=== PATIENT | male | born 1960 | race Caucasian/White ===

== ENCOUNTER → 2016-06-05 | Outpatient (CLI) | payer OTHER, MEDICAID ==
--- NOTE | 2016-06-05 12:46 | MRI ---
HISTORY: Spondylosis, thoracic region, chronic thoracic pain Study: MRI lumbar spine without contrast Comparison: None Technique: Multiplanar multi-sequence MRI of the thoracic spine was obtained with standard [facility] protocol. Findings: The thoracic spine demonstrates normal alignment. No abnormal cord or marrow signal identified. The surrounding soft tissues are within normal limits. Vertebral body heights are preserved. Mild disc bulge with ligamentous calcification at T8-T9 does not appear to cause any significant mass effect. No significant spinal canal or foraminal stenosis identified. IMPRESSION: 1. Unremarkable MRI of the thoracic spine. Reported By:
== END ==
LOC: RAD 09:48
PROVIDERS: ATTEND Internal Medicine
DX: M47.894 Other spondylosis, thoracic region (principal)
CPT/HCPCS: 72146

== ENCOUNTER 2016-08-17 04:53 | Observation (INO) | payer OTHER, MEDICAID ==
[2016-08-17] MEDS ORDERED: ADACEL TDaP IM ONE (05:22)
--- NOTE | 2016-08-17 05:30 | DR.GENAD ---
HPI - PCP Primary Care Physician: YOUNG - Complaint/Symptoms Chief Complaint Doctors Comments: Patient states he has fallen twice today once on his left side and the other time backwards when he was in the bathroom. Patient states he has been having problems walking with problems with his balance wobbling for the past three weeks getting worst tonight. Patient states he has been having weakness and decrease senstion in his left leg for a while. He saw Dr. Weinberg five days ago for tests. States he was recently in the hospital at [place] for the same problems he is having tonight according to his father. Patient denies tobacco or drugh use. States he has been having leg pain with swelling. States he is a bad diabetic and has heart problems and sees a vending manager in [place], Dr. Norman. States he has had two stents in his heart and one in his leg about two years ago. states he has a cut on his left leg for a while and he is unsure of his last tetanus. He denies chest pain or SOB. Chief Complaint:: LEG PAIN/WEAKNESS/FALLEN - Nurses notes reviewed Nurses Notes Review: Yes - Source History Provided: Patient - Mode of Arrival Mode of Arrival: Ambulatory - Timing Onset of Chief Complaint: 07/31/16 Came on: Gradually - Duration Duration: Intermittent How lon Duration: Weeks - Severity Severity: Moderate - Modifying Factors Worsens:: walking Improves:: nothing PMH - PMH Past Medical History: Yes Past Medical History: Coronary Artery Disease, Diabetes, Dyslipidemia, Hypertension Past Surgical History: Yes Surgical History: Angioplasty/Stents, Tonsillectomy Past Surgical History Comment: STENTS IN BOTH LEGS, CATARACTS BILAT - Family History History of Family Medical Conditions: Yes Family Medical History: Diabetes Mellitus, Cancer, [place], Coronary Artery Disease, Heart Failure, Sudden Cardiac , Hypertension - Social History Does patient currently use any type of tobacco product: No Have you used tobacco products in the last 12 months: No Type of Tobacco Use: None Does any household member use tobacco: No Alcohol Use: None Do you use any recreational Drugs:: No Lives With: Family Lives Where: Home - infectious screening In the last 2 months have you had wt loss of >10#?: NO Have you had fever, night sweats or hemotysis?: No Have you traveled outside the country in the last 6 months?: No Isolation: Standard ROS - Review of Systems Constitutional: No Symptoms Reported, Weakness. negative: See HPI, Chills, Diaphoresis, Fever, Malaise, Irritable, Fatigue, Loss of Appetite, Other Eyes: No Symptoms Reported ENTM: No Symptoms Reported Respiratoy: No Symptoms Reported Cardiovascular: No Symptoms Reported, Edema. negative: See HPI, Chest Pain, Palpitations, Syncope, Cyanosis, Skin Mottling, Other Gastrointestinal/Abdominal: No Symptoms Reported Genitourinary: No Symptoms Reported Neurological: No Symptoms Reported, Numbness (left leg and foot), Paresthesia, Pre-existing Deficit (left leg numbness), Weakness, Problems Walking Musculoskeletal: No Symptoms Reported, Left, Arm, Leg Integumentary: No Symptoms Reported, Lesions (left leg with 4 cm abrasion) Hematologic/Lymphatic: No Symptoms Reported Endocrine: No Symptoms Reported Psychiatric: No Symptoms Reported PE - General Limitations: No Limitations General Appearance: Alert, In Distress (moderate), Obese - Head Head Exam: Normal Inspection, Atraumatic, Normocephalic - Eyes Eye exam: Normal Appearance, PERRL, EOMI. negative: Scleral Icterus, Conjunctival Injection, Nystagmus, Miosis, Mydrasis, Periorbital Swelling, Periorbital Tenderness, Other - ENT ENT Exam: Normal Exam, Normal Oropharynx, Normal External Ear Exam, Mucous Membranes Moist, TM's Normal Bilaterally External Ear Exam: Normal External Inspection TM/Canal Exam: Bilateral Normal Nose Exam: Normal Nose Exam Mouth Exam: Normal Inspection Throat Exam: Normal Inspection - Neck Neck Exam: Normal Inspection, Full ROM, Trachea Midline, Tenderness (posterior neck tender on palpation). negative: Meningismus, Lymphadenopathy, Thyromegaly , Other - Chest Chest Inspection: Normal Inspection, Symmetric Chest Wall Rise - Respiratory Respiratory Exam: Normal Lung Sounds Bilat Respiratory Exam: Bilateral Clear to Auscultation - Cardiovascular Cardiovascular Exam: Regular Rate, Normal Rhythm, Normal Heart Sounds - Abdominal Exam Abdominal Exam: Normal Inspection, Normal Bowel Sounds, Soft, Distention, Dimnished Bowel Sounds Abdominal Tenderness: negative: RUQ, RLQ, LUQ, LLQ, Epigastrium, Suprapubic, Diffuse, Mild, Moderate, Severe, Other - Extremities Extremities Exam: Normal Inspection, Full ROM, Tenderness (left lower leg with linear abrasion 4 cm; edema 2+), Normal Capillary Refill, Edema. negative: Joint Swelling, Calf Tenderness, Other - Back Back Exam: Normal Inspection, Full ROM. negative: Tenderness, (R) CVA Tenderness, (L) CVA Tenderness, Muscle Spasm, Paraspinal Tenderness, Vertebral Tenderness, Rashes, (R) Sciatic Notch Tenderness, (L) Sciatic Notch Tendern, (R ) Straight Leg Raise, (L) Straight Leg Raise, Other - Neurologic Neurological Exam: Alert, Oriented X3, CN II-XII Intact, Reflexes Normal. negative: Normal Gait, Motor Sensory Deficit - Psychiatric Psychiatric Exam: Normal Affect, Normal Mood. negative: Depressed, Agitated, Anxious, Flat Affect, Manic, Homicidal Ideation, Suicidal Ideation, Other - Skin Skin Exam: Warm, Dry, Intact, Normal Color. negative: Rash, Cyanosis, Diaphoresis, Erythema, Pallor, Mottled, Other Course - Reevaluation 1st: Improved - Consultation Called: 08:13 Call Returned: 08:13 (Dr. Snow to admit) - Education/Counseling Education/Counseling: Patient, Family Educated On: Treatment, Diagnosis, Prognosis, Needs for Follow Up ROR - Labs Reviewed Laboratory Results Reviewed?: Yes (all labs and x-ray results reviewed and discussed with patient) Result Diagrams: 08/17/16 05:36 08/17/16 05:36 Laboratory: WBC 14.8 X10^3/uL (3.6-10.0) H 08/17/16 05:36 RBC 4.15 X10^6/uL (4.7-6.0) L 08/17/16 05:36 Hgb 12.9 g/dL (13.5-18.0) L 08/17/16 05:36 Hct 39.5 % (42.0-54.0) L 08/17/16 05:36 MCV 95.2 fL (80.0-100.0) 08/17/16 05:36 MCH 31.2 pg (27.0-34.0) 08/17/16 05:36 MCHC 32.7 g/dL (33.0-35.0) L 08/17/16 05:36 RDW 13.6 % (11.6-16.5) 08/17/16 05:36 Plt Count 233 X10^3/uL (150.0-450.0) 08/17/16 05:36 MPV 10.1 fL (7.4-11.0) 08/17/16 05:36 Neut % 87.7 % (42.0-75.0) H 08/17/16 05:36 Lymph % 3.7 % (21.0-51.0) L 08/17/16 05:36 [place] % 7.0 % (0.0-13.0) 08/17/16 05:36 Eos % 0.8 % (0.9-2.9) L 08/17/16 05:36 Baso % 0.8 % (0.2-1.0) 08/17/16 05:36 Neut # 13.0 x10^3/uL (2.2-4.8) H 08/17/16 05:36 Lymph # 0.5 X10^3/uL (1.3-2.9) L 08/17/16 05:36 [place] # 1.0 x10^3/uL (0.3-0.8) H 08/17/16 05:36 Eos # 0.1 x10^3/uL (0.0-0.2) 08/17/16 05:36 Baso # 0.1 X10^3/uL (0.0-0.1) 08/17/16 05:36 Absolute Nucleated RBC 0.0 /100WBC 08/17/16 05:36 INR Target Range - 08/17/16 05:36 INR 1.68 (0.8-1.3) H 08/17/16 05:36 PTT 42.4 SECONDS (22.9-36.5) H 08/17/16 05:36 PTT Comment - 08/17/16 05:36 D-Dimer 165 ng/mL (0-400) 08/17/16 05:36 Sodium 137 mmol/L (136-145) 08/17/16 05:36 Corrected Sodium 139 mmol/L (136-145) 08/17/16 05:36 Potassium 3.8 mmol/L (3.5-5.1) 08/17/16 05:36 Chloride 97 mmol/L (98-107) L 08/17/16 05:36 Carbon Dioxide 28.0 mmol/L (21-32) 08/17/16 05:36 BUN 31 mg/dL (7-18) H 08/17/16 05:36 Creatinine 1.96 mg/dL (0.70-1.30) H 08/17/16 05:36 Est GFR (MDRD) Af Amer 46 (>60) L 08/17/16 05:36 Est GFR (MDRD) Non-Af 38 (>60) L 08/17/16 05:36 Glucose 178 mg/dL (65-99) H 08/17/16 05:36 Calcium 8.5 mg/dL (8.5-10.1) 08/17/16 05:36 Corrected Calcium TNP 08/17/16 05:36 Magnesium 1.2 mg/dL (1.7-2.9) L 08/17/16 05:36 Total Bilirubin 0.50 mg/dL (0.2-1.0) 08/17/16 05:36 AST 18 Units/L (15-37) 08/17/16 05:36 ALT 19 Units/L (12-78) 08/17/16 05:36 Alkaline Phosphatase 55 Units/L (46-116) 08/17/16 05:36 Creatine Kinase 400 Units/L (39-308) H 08/17/16 05:36 CK-MB (CK-2) 2.9 ng/mL (0-4.0) 08/17/16 05:36 CK/CKMB % Calc 0.7 % (<4) 08/17/16 05:36 Troponin I < 0.02 ng/mL (0-1.5) 08/17/16 05:36 Total Protein 7.2 g/dL (6.4-8.2) 08/17/16 05:36 Albumin 3.4 g/dL (3.4-5.0) 08/17/16 05:36 Globulin 3.8 g/dL (2.5-4.5) 08/17/16 05:36 Albumin/Globulin Ratio 0.9 Ratio (1.1-2.1) L 08/17/16 05:36 - XRAY XRAY Interpreted by: Radiologist (CXR: No acute cardiopulmonary abnormality. Cardiomegaly) - EKG Rate: 109 [place]: Normal Rhythm: NSR ST: Old, Ant, Infarct - Diagnosis Discharge Problem: Chest pain, rule out acute myocardial infarction, altered mental status with fall, Left hemiparesis, Morbid obesity, Chronic pain syndrome Diabetes mellitus Qualifiers: Diabetes mellitus type: type 2 Diabetes mellitus complication status: with hyperglycemia Abrasion of left leg Qualifiers: Encounter type: initial encounter Qualified Code(s): S80.812A - Abrasion, left lower leg, initial encounter - Discharge Plan Disposition: ADMITTED INPATIENT Condition: Stable - Follow ups/Referrals Follow ups/Referrals: Luis Weinberg [Primary Care Provider] - 3 days - Instructions
[2016-08-17 05:44] LABS: BASOPHILS # (AUTO) 0.1 X10^3/uL (0.0-0.1); BASOPHILS % (AUTO) 0.8 % (0.2-1.0); EOSINOPHILS # (AUTO) 0.1 x10^3/uL (0.0-0.2); EOSINOPHILS % (AUTO) 0.8 % (0.9-2.9); HEMATOCRIT 39.5 % (42.0-54.0); HEMOGLOBIN 12.9 g/dL (13.5-18.0); LYMPHOCYTES # (AUTO) 0.5 X10^3/uL (1.3-2.9); LYMPHOCYTES % (AUTO) 3.7 % (21.0-51.0); MEAN CORPUSCULAR HEMOGLOBIN 31.2 pg (27.0-34.0); MEAN CORPUSCULAR HGB CONC 32.7 g/dL (33.0-35.0); MEAN CORPUSCULAR VOLUME 95.2 fL (80.0-100.0); MEAN PLATELET VOLUME 10.1 fL (7.4-11.0); NEUTROPHILS % (AUTO) 87.7 % (42.0-75.0); PLATELET COUNT 233 X10^3/uL (150.0-450.0); RED BLOOD COUNT 4.15 X10^6/uL (4.7-6.0); RED CELL DISTRIBUTION WIDTH 13.6 % (11.6-16.5); WHITE BLOOD COUNT 14.8 X10^3/uL (3.6-10.0)
[2016-08-17 05:59] LABS: BLOOD UREA NITROGEN 31 mg/dL (7-18); CALCIUM 8.5 mg/dL (8.5-10.1); CHLORIDE 97 mmol/L (98-107); COR NA(FOR HYPERGLY) 139 mmol/L (136-145); CREATININE 1.96 mg/dL (0.70-1.30); GLUCOSE 178 mg/dL (65-99); SODIUM 137 mmol/L (136-145); TROPONIN I < 0.02 ng/mL (0-1.5); eGFR BLACK RACES 46 (>60); eGFR NON BLACK RACES 38 (>60)
[2016-08-17 06:04] LABS: ALANINE AMINOTRANSFERASE 19 Units/L (12-78); ALBUMIN 3.4 g/dL (3.4-5.0); ALKALINE PHOSPHATASE 55 Units/L (46-116); ASPARTATE AMINO TRANSFERASE 18 Units/L (15-37); CKMB % 0.7 % (<4); CREATINE KINASE 400 Units/L (39-308); CREATINE KINASE MB 2.9 ng/mL (0-4.0); MAGNESIUM 1.2 mg/dL (1.7-2.9); TOTAL PROTEIN 7.2 g/dL (6.4-8.2)
[2016-08-17 06:07] LABS: D DIMER 165 ng/mL (0-400)
--- NOTE | 2016-08-17 06:08 | CT ---
CT head without contrast Indication: Fall with weakness Comparison: None Technique CT images of the head were obtained without contrast. Automatic exposure control was utili Shelf[employer]d. Findings: There is no acute bleed, generalized or focal edema, or abnormal extra-axial collection. T he ventricular system is nondilated. No acute calvarial fracture. The visualized paranasal sinuses a nd mastoid air cells are clear. Impression: No acute intracranial abnormality. Reported By:
--- NOTE | 2016-08-17 06:10 | CT ---
CT cervical spine without contrast Indication: Fall, weakness, neck pain. Comparison: None Technique: CT images of the cervical spine were obtained without contrast. Automatic exposure contro l was utilized. Findings: The cervical spine alignment is normal. No acute fracture or subluxation is identified. Th ere is moderate multilevel facet and mild discogenic degenerative disease. No significant prevertebr al soft tissue swelling. Impression: No evidence of acute cervical spine injury. Multilevel degenerative disease. Reported By:
--- NOTE | 2016-08-17 06:12 | RAD ---
Chest, one view Indication: Fall, weakness Comparison: None Findings: There is mild cardiac silhouette enlargement. The lungs are hypoinflated, with mild right hemidiaphragm elevation and right basilar atelectasis. No large effusion or pneumothorax. The bony t horax is unremarkable. Impression: No acute cardiopulmonary abnormality. Cardiomegaly Mild right hemidiaphragm elevation with basilar atelectasis. Reported By:
[2016-08-17] MEDS: NS 1000 ML 1,000 ML IV SCH ×2 (06:39→21:16)
[2016-08-17 09:21] LABS: CKMB % 0.6 % (<4); CREATINE KINASE 642 Units/L (39-308); CREATINE KINASE MB 3.7 ng/mL (0-4.0); TROPONIN I < 0.02 ng/mL (0-1.5)
[2016-08-17] MEDS ORDERED: BUTT CREAM (COMPOUND) TOP PRN (11:21)
[2016-08-17] MEDS ORDERED: LASIX PO PRN (12:05)
[2016-08-17] MEDS ORDERED: POTASSIUM CHLORIDE 20 MEQ PO SCH (12:15)
[2016-08-17] MEDS ORDERED: DULOXETINE HCL 20 MG PO SCH (12:15)
[2016-08-17] MEDS ORDERED: PATIENT'S HOME MEDICATION (Losartan Potassium [Losartan Potassium] 100 MG) PO SCH (12:15)
[2016-08-17] MEDS: NABUMETONE 500 MG PO SCH ×2 (13:33→23:16)
[2016-08-17] MEDS ORDERED: TIZANIDINE HCL 2 MG PO SCH (14:00)
[2016-08-17] MEDS ORDERED: NEURONTIN CAP 400 MG PO SCH (14:00)
[2016-08-17] MEDS ORDERED: GABAPENTIN 800 MG PO SCH (14:00)
[2016-08-17] MEDS: PriLOSEC PO SCH (14:18)
[2016-08-17] MEDS: HYDROCHLOROTHIAZIDE 12.5 MG CAP PO SCH (14:18)
[2016-08-17] MEDS: CYMBALTA PO SCH (14:19)
[2016-08-17] MEDS: MAXZIDE 37.5/25 MG PO SCH (14:19)
[2016-08-17] MEDS: BUMEX TAB 1 MG PO SCH (14:19)
[2016-08-17] MEDS: SINGULAIR TAB 10 MG PO SCH (14:19)
[2016-08-17] MEDS: GLUCOTROL XL PO SCH (14:19)
[2016-08-17] MEDS: ASPIRIN PO SCH (14:19)
[2016-08-17] MEDS: ZANAFLEX PO SCH ×2 (14:19→21:19)
[2016-08-17] MEDS: COUMADIN TAB 5 MG PO SCH (14:22)
[2016-08-17] MEDS: PLAVIX PO SCH (14:22)
[2016-08-17 15:41] LABS: CKMB % 0.4 % (<4); CREATINE KINASE 837 Units/L (39-308); CREATINE KINASE MB 3.5 ng/mL (0-4.0); TROPONIN I < 0.02 ng/mL (0-1.5)
[2016-08-17] MEDS ORDERED: PATIENT'S HOME MEDICATION (Trazodone Hcl [Trazodone Hcl] 100 MG) PO SCH (21:00)
[2016-08-17] MEDS ORDERED: KLONOPIN TAB 1 MG PO SCH (21:00)
[2016-08-17] MEDS ORDERED: DESYREL PO SCH (21:00)
[2016-08-17] MEDS ORDERED: PATIENT'S HOME MEDICATION (Clonazepam [Clonazepam] 2 MG) PO SCH (21:00)
[2016-08-17] MEDS: LIPITOR TAB 20 MG PO SCH (21:17)
[2016-08-17] MEDS: CHECK PATCH XX SCH (21:18)
[2016-08-17] MEDS: OxyCONTIN CR 20 MG PO PRN (21:19)
[2016-08-17] MEDS: SNACK - Diabetic Appropriate PO SCH (21:20)
[2016-08-17 21:57] LABS: CKMB % 0.3 % (<4); CREATINE KINASE 832 Units/L (39-308); CREATINE KINASE MB 2.6 ng/mL (0-4.0); TROPONIN I < 0.02 ng/mL (0-1.5)
[2016-08-18 05:29] LABS: BASOPHILS # (AUTO) 0.1 X10^3/uL (0.0-0.1); BASOPHILS % (AUTO) 1.7 % (0.2-1.0); EOSINOPHILS # (AUTO) 0.4 x10^3/uL (0.0-0.2); EOSINOPHILS % (AUTO) 4.5 % (0.9-2.9); HEMATOCRIT 37.5 % (42.0-54.0); HEMOGLOBIN 12.6 g/dL (13.5-18.0); LYMPHOCYTES # (AUTO) 0.9 X10^3/uL (1.3-2.9); LYMPHOCYTES % (AUTO) 11.8 % (21.0-51.0); MEAN CORPUSCULAR HEMOGLOBIN 31.6 pg (27.0-34.0); MEAN CORPUSCULAR HGB CONC 33.5 g/dL (33.0-35.0); MEAN CORPUSCULAR VOLUME 94.3 fL (80.0-100.0); MEAN PLATELET VOLUME 9.8 fL (7.4-11.0); MONOCYTES # (AUTO) 0.6 x10^3/uL (0.3-0.8); MONOCYTES % (AUTO) 7.5 % (0.0-13.0); NEUTROPHILS # (AUTO) 5.8 x10^3/uL (2.2-4.8); NEUTROPHILS % (AUTO) 74.5 % (42.0-75.0); PLATELET COUNT 228 X10^3/uL (150.0-450.0); RED BLOOD COUNT 3.98 X10^6/uL (4.7-6.0); RED CELL DISTRIBUTION WIDTH 13.6 % (11.6-16.5); WHITE BLOOD COUNT 7.8 X10^3/uL (3.6-10.0)
[2016-08-18 05:44] LABS: ALANINE AMINOTRANSFERASE 20 Units/L (12-78); ALBUMIN 2.8 g/dL (3.4-5.0); ALKALINE PHOSPHATASE 53 Units/L (46-116); ASPARTATE AMINO TRANSFERASE 36 Units/L (15-37); BLOOD UREA NITROGEN 21 mg/dL (7-18); CALCIUM 8.6 mg/dL (8.5-10.1); CARBON DIOXIDE 33.9 mmol/L (21-32); CHLORIDE 100 mmol/L (98-107); COR CA(FOR HYPOALB) 9.6 mg/dL (8.5-10.1); COR NA(FOR HYPERGLY) 140 mmol/L (136-145); CREATININE 0.89 mg/dL (0.70-1.30); GLUCOSE 152 mg/dL (65-99); SODIUM 139 mmol/L (136-145); TOTAL PROTEIN 6.7 g/dL (6.4-8.2); eGFR BLACK RACES > 60 (>60); eGFR NON BLACK RACES > 60 (>60)
[2016-08-18] MEDS: ZANAFLEX PO SCH ×3 (06:08→21:36)
[2016-08-18] MEDS: ASPIRIN PO SCH (08:11)
[2016-08-18] MEDS: PriLOSEC PO SCH (08:12)
[2016-08-18] MEDS: CYMBALTA PO SCH (08:13)
[2016-08-18] MEDS: OxyCONTIN CR 20 MG PO PRN (08:30)
[2016-08-18 08:32] LABS: BILIRUBIN,URINE NEGATIVE (NEGATIVE); BLOOD/HEMOGLOBIN,URINE 5+ (NEGATIVE); GLUCOSE, URINE NEGATIVE (NEGATIVE); KETONES,URINE NEGATIVE (NEGATIVE); LEUKOCYTE ESTERASE ,URINE 1+ (NEGATIVE); NITRITES,URINE NEGATIVE (NEGATIVE); PROTEIN,URINE 2+ (NEGATIVE); UROBILINOGEN,URINE NORMAL (NORMAL)
[2016-08-18 08:59] LABS: APPEARANCE,URINE TURBID (CLEAR); COLOR,URINE RED (YELLOW)
[2016-08-18 09:00] LABS: AMORPHOUS SEDIMENT,UR TRACE /HPF (NEGATIVE); BACTERIA,URINE NEGATIVE /HPF (NEGATIVE); RBC,URINE TNTC /HPF (NEGATIVE); SQUAMOUS EPITHELIAL CELL,UR FEW /HPF (NEGATIVE)
[2016-08-18 09:02] VITALS: BMI 55.5
[2016-08-18] MEDS: BUMEX TAB 1 MG PO SCH (09:04)
[2016-08-18] MEDS: COUMADIN TAB 5 MG PO SCH (09:05)
[2016-08-18] MEDS: HYDROCHLOROTHIAZIDE 12.5 MG CAP PO SCH (09:05)
[2016-08-18] MEDS: CHECK PATCH XX SCH ×2 (09:05→21:39)
[2016-08-18] MEDS: COZAAR PO SCH (09:05)
[2016-08-18] MEDS: GLUCOTROL XL PO SCH (09:05)
[2016-08-18] MEDS: MAXZIDE 37.5/25 MG PO SCH (09:06)
[2016-08-18] MEDS: NS 1000 ML 1,000 ML IV SCH ×2 (09:06→11:50)
[2016-08-18] MEDS: K-DUR TAB 20 MEQ PO SCH (09:06)
[2016-08-18] MEDS: SINGULAIR TAB 10 MG PO SCH (09:06)
[2016-08-18] MEDS: PLAVIX PO SCH (09:06)
[2016-08-18 11:13] LABS: CHOL/HDL RATIO 2.8 (0.0-5.0)
[2016-08-18] MEDS: NABUMETONE 500 MG PO SCH (12:02)
[2016-08-18] MEDS: ULTRAM PO PRN (21:35)
[2016-08-18] MEDS: LIPITOR TAB 20 MG PO SCH (21:36)
[2016-08-18] MEDS: SNACK - Diabetic Appropriate PO SCH (22:37)
[2016-08-19] MEDS: NABUMETONE 500 MG PO SCH ×2 (00:31→12:06)
[2016-08-19] MEDS: OxyCONTIN CR 20 MG PO PRN (02:53)
[2016-08-19 05:22] LABS: BASOPHILS # (AUTO) 0.1 X10^3/uL (0.0-0.1); BASOPHILS % (AUTO) 0.8 % (0.2-1.0); BLOOD UREA NITROGEN 19 mg/dL (7-18); CALCIUM 9.3 mg/dL (8.5-10.1); CARBON DIOXIDE 33.6 mmol/L (21-32); CHLORIDE 101 mmol/L (98-107); COR NA(FOR HYPERGLY) 147 mmol/L (136-145); CREATININE 0.88 mg/dL (0.70-1.30); EOSINOPHILS # (AUTO) 0.3 x10^3/uL (0.0-0.2); EOSINOPHILS % (AUTO) 3.8 % (0.9-2.9); GLUCOSE 257 mg/dL (65-99); HEMATOCRIT 38.9 % (42.0-54.0); HEMOGLOBIN 13.1 g/dL (13.5-18.0); LYMPHOCYTES # (AUTO) 0.8 X10^3/uL (1.3-2.9); LYMPHOCYTES % (AUTO) 9.8 % (21.0-51.0); MAGNESIUM 1.4 mg/dL (1.7-2.9); MEAN CORPUSCULAR HEMOGLOBIN 31.7 pg (27.0-34.0); MEAN CORPUSCULAR HGB CONC 33.7 g/dL (33.0-35.0); MEAN CORPUSCULAR VOLUME 94.2 fL (80.0-100.0); MEAN PLATELET VOLUME 10.5 fL (7.4-11.0); MONOCYTES # (AUTO) 0.8 x10^3/uL (0.3-0.8); MONOCYTES % (AUTO) 10.4 % (0.0-13.0); NEUTROPHILS # (AUTO) 5.7 x10^3/uL (2.2-4.8); NEUTROPHILS % (AUTO) 75.2 % (42.0-75.0); PLATELET COUNT 240 X10^3/uL (150.0-450.0); RED BLOOD COUNT 4.13 X10^6/uL (4.7-6.0); RED CELL DISTRIBUTION WIDTH 13.4 % (11.6-16.5); SODIUM 143 mmol/L (136-145); WHITE BLOOD COUNT 7.6 X10^3/uL (3.6-10.0); eGFR BLACK RACES > 60 (>60); eGFR NON BLACK RACES > 60 (>60)
[2016-08-19] MEDS ORDERED: K-RIDER 10 MEQ/NS 100 ML 10 MEQ/100 ML BAG IV PRN (05:45)
[2016-08-19] MEDS ORDERED: K-LYTE EFFERVESCENT PO PRN (05:45)
[2016-08-19] MEDS ORDERED: POTASSIUM CHLORIDE LIQ 20 MEQ UDC PO PRN (05:45)
[2016-08-19] MEDS: ZANAFLEX PO SCH ×3 (06:01→21:48)
[2016-08-19] MEDS: K-DUR TAB 20 MEQ PO PRN (06:01)
[2016-08-19] MEDS: PLAVIX PO SCH (08:44)
[2016-08-19] MEDS: PriLOSEC PO SCH (08:45)
[2016-08-19] MEDS: HYDROCHLOROTHIAZIDE 12.5 MG CAP PO SCH (08:45)
[2016-08-19] MEDS: GLUCOTROL XL PO SCH (08:45)
[2016-08-19] MEDS: ASPIRIN PO SCH (08:46)
[2016-08-19] MEDS: BUMEX TAB 1 MG PO SCH (08:47)
[2016-08-19] MEDS: CYMBALTA PO SCH (08:47)
[2016-08-19] MEDS: COZAAR PO SCH (08:47)
[2016-08-19] MEDS: COUMADIN TAB 5 MG PO SCH (08:48)
[2016-08-19] MEDS: K-DUR TAB 20 MEQ PO SCH (08:48)
[2016-08-19] MEDS: MAXZIDE 37.5/25 MG PO SCH (08:49)
[2016-08-19] MEDS: CHECK PATCH XX SCH ×2 (08:49→21:49)
[2016-08-19] MEDS: SINGULAIR TAB 10 MG PO SCH (08:56)
[2016-08-19] MEDS: NS 1000 ML 1,000 ML IV SCH ×3 (12:03→21:47)
[2016-08-19] MEDS: MAGNESIUM SULFATE 1 GM/100 mL PREMIX 1 GM/100 ML BAG IV SCH ×2 (12:04→14:33)
[2016-08-19] MEDS: ULTRAM PO PRN ×2 (14:36→21:48)
[2016-08-19] MEDS: HumuLIN R SUBCUT PRN ×2 (17:48→21:47)
[2016-08-19] MEDS ORDERED: COUMADIN TAB 7.5 MG PO ONE (21:00)
[2016-08-19] MEDS: LIPITOR TAB 20 MG PO SCH (21:48)
[2016-08-19] MEDS: SNACK - Diabetic Appropriate PO SCH (21:49)
[2016-08-20] MEDS: NABUMETONE 500 MG PO SCH ×2 (00:33→13:24)
[2016-08-20] MEDS: OxyCONTIN CR 20 MG PO PRN (03:41)
[2016-08-20 05:16] LABS: ALANINE AMINOTRANSFERASE 19 Units/L (12-78); ALKALINE PHOSPHATASE 51 Units/L (46-116); ASPARTATE AMINO TRANSFERASE 19 Units/L (15-37); BLOOD UREA NITROGEN 16 mg/dL (7-18); CARBON DIOXIDE 30.8 mmol/L (21-32); CHLORIDE 102 mmol/L (98-107); COR CA(FOR HYPOALB) 9.8 mg/dL (8.5-10.1); COR NA(FOR HYPERGLY) 143 mmol/L (136-145); CREATININE 0.77 mg/dL (0.70-1.30); GLUCOSE 154 mg/dL (65-99); MAGNESIUM 1.5 mg/dL (1.7-2.9); SODIUM 142 mmol/L (136-145); TOTAL PROTEIN 7.1 g/dL (6.4-8.2); eGFR BLACK RACES > 60 (>60); eGFR NON BLACK RACES > 60 (>60)
[2016-08-20 05:23] LABS: BASOPHILS # (AUTO) 0.1 X10^3/uL (0.0-0.1); EOSINOPHILS # (AUTO) 0.4 x10^3/uL (0.0-0.2); EOSINOPHILS % (AUTO) 6.1 % (0.9-2.9); HEMATOCRIT 41.4 % (42.0-54.0); HEMOGLOBIN 13.8 g/dL (13.5-18.0); LYMPHOCYTES % (AUTO) 14.6 % (21.0-51.0); MEAN CORPUSCULAR HEMOGLOBIN 31.5 pg (27.0-34.0); MEAN CORPUSCULAR HGB CONC 33.4 g/dL (33.0-35.0); MEAN CORPUSCULAR VOLUME 94.3 fL (80.0-100.0); MEAN PLATELET VOLUME 9.9 fL (7.4-11.0); MONOCYTES # (AUTO) 0.7 x10^3/uL (0.3-0.8); MONOCYTES % (AUTO) 10.4 % (0.0-13.0); NEUTROPHILS # (AUTO) 4.9 x10^3/uL (2.2-4.8); NEUTROPHILS % (AUTO) 67.9 % (42.0-75.0); PLATELET COUNT 313 X10^3/uL (150.0-450.0); RED BLOOD COUNT 4.39 X10^6/uL (4.7-6.0); RED CELL DISTRIBUTION WIDTH 13.5 % (11.6-16.5); WHITE BLOOD COUNT 7.1 X10^3/uL (3.6-10.0)
[2016-08-20] MEDS: NS 1000 ML 1,000 ML IV SCH (05:45)
[2016-08-20] MEDS: ZANAFLEX PO SCH ×2 (05:46→13:40)
[2016-08-20] MEDS: K-DUR TAB 20 MEQ PO PRN (06:09)
[2016-08-20] MEDS: COZAAR PO SCH (08:43)
[2016-08-20] MEDS: PLAVIX PO SCH (08:43)
[2016-08-20] MEDS: ASPIRIN PO SCH (08:43)
[2016-08-20] MEDS: GLUCOTROL XL PO SCH (08:44)
[2016-08-20] MEDS: HYDROCHLOROTHIAZIDE 12.5 MG CAP PO SCH (08:44)
[2016-08-20] MEDS: K-DUR TAB 20 MEQ PO SCH (08:44)
[2016-08-20] MEDS: BUMEX TAB 1 MG PO SCH (08:44)
[2016-08-20] MEDS: PriLOSEC PO SCH (08:44)
[2016-08-20] MEDS: MAXZIDE 37.5/25 MG PO SCH (08:44)
[2016-08-20] MEDS: SINGULAIR TAB 10 MG PO SCH (08:44)
[2016-08-20] MEDS: CHECK PATCH XX SCH (08:45)
[2016-08-20] MEDS: CYMBALTA PO SCH (08:47)
[2016-08-20] MEDS: MAGNESIUM SULFATE 1 GM/100 mL PREMIX 1 GM/100 ML BAG IV SCH ×2 (11:00→12:06)
[2016-08-20] MEDS: HumuLIN R SUBCUT PRN (12:07)
[2016-08-20 13:24] VITALS: BP 149/75
--- NOTE | 2016-08-20 14:13 | PCM.PROG ---
Progress Note - Progress Note for Day of Date: 08/19/16 - Subjective Subjective: Patient is a 55yo male who presented ot the emergency room on 08/17 with complaints of several syncopal episodes that occured on 08/16, he had complaints of generalized weakness and chest discomfort and was admitted as observation for chest pain r/o AMI, and falls. This am patient states he is still feeling bad but is better than he previously was. he and his family voice concerns about him being so weak and going home. so we have talked to case management about setting him up with home health and physical therapy. Patient states that he is having back pain that is keeping him from sleeping. He ia also noted to have a low potassium of 3.1 for which he is seeing potassium replacement protocol for and magnesium is 1.4 and we are going to give mag rider 1gm x2 bags. His INR is 1.22 we will give him a once time dose of coumadin 7.5 then resume his coumadin 5mg after that. Labs are within normal limits with the exception of RBC 4.13, Hgb 13.1, Hct 38.9, Neut% 75.2, Lymph% 9.8, Eos% 3.8, Neut# 5.7, Lymph# 0.8, Eos# 0.3, INR 1.15 Coumadin 5, Na 147, K 3.1, Carbon Dioxide 33.6, BUN 19, Glucose 257, Albumin 2.8, Mag 1.4 - Past Medical Family Social History Past Med/Fam/Surg Hx: No changes since H&P Allergies: Allergies No Known Drug Allergy Allergy (Verified 08/17/16 08:05) - Review of Systems ROS: No change since H&P - Vital Signs and I&O's Vital Signs: Temperature 98.1 F Pulse Rate [Right Brachial] 96 Pulse Rate [Left Brachial] 87 Respiratory Rate 20 Blood Pressure [Left Arm] 149/75 O2 Sat by Pulse Oximetry 91 Intake and Output: Intake & Output 08/18/16 08/19/16 08/20/16 08/21/16 11:59 11:59 11:59 11:59 Intake Total 9026 3108 2007 Output Total 202 5975 Balance 1974 -2007 - Physical Exam Oriented: Normal Eyes: Normal Ear: Normal Nose: Normal Throat: Normal Respiratory: Normal Cardiovascular: Normal : Normal Auscultation: Bowel Sounds: Normal Palpation: Normal Tenderness: Normal Skin: Normal Musculoskeletal: Instability Psychiatric: Normal Mood Description: Depressed Speech Pattern: Clear, Appropriate - Laboratory and Diagnostics Result Diagrams: 08/20/16 04:15 08/20/16 08:20 Labs: Labs are within normal limits with the exception of RBC 4.13, Hgb 13.1, Hct 38.9 , Neut% 75.2, Lymph% 9.8, Eos% 3.8, Neut# 5.7, Lymph# 0.8, Eos# 0.3, INR 1.15 Coumadin 5, Na 147, K 3.1, Carbon Dioxide 33.6, BUN 19, Glucose 257, Albumin 2.8 , Mag 1.4 - Plan (1) Chest pain, rule out acute myocardial infarction Status: Acute Plan: continue to monitor (2) Chronic pain syndrome Status: Acute Plan: pain medications as ordered and physical therapy (3) Hypokalemia Status: Acute Plan: potassium replacement protocol (4) Hypomagnesemia Status: Acute Plan: Mag rider 1gm x2 bag
--- NOTE | 2016-08-20 14:26 | DR.CARTERD ---
- Discharge Summary for: Discharge Summary for Date of:: 08/20/16 - Admission Date Date of Admission: 08/17/16 - Admission Diagnoses Admission Diagnosis: Chest Pain R/O AMI. Weakness - Discharge Date Discharge Date: 08/20/16 - Discharge Diagnoses Discharge Diagnosis: Chest Pain R/O AMI Weakness Chronic Back Pain Hypokalemia Hypomagnesemia - Hospital Course Hospital Course: Patient is a 55yo male who presented ot the emergency room on 08/17 with complaints of several syncopal episodes that occured on 08/16, he had complaints of generalized weakness and chest discomfort and was admitted as observation for chest pain r/o AMI, and falls. Patient serial cardiac enzymes and EKGS were normal Chest Xray showed no acute cardiopulmonary disease, Cardiomegaly, mild right hemidiaphragm elevation with basilar atelectasis. Ct of cervical Spine showed no evidence of acute cervical spine injury, multilevel degenerative disease This am patient states he is still feeling he is comfortable being discharged with home health and physical therapy.His magnesium was 1.5 this am he will receive another 2 mag rider 1gm IV before he goes home. Labs: Labs are within normal limits with the exception of NA 142, K3.1, BUN 16, Albumin 3.0 and magnesium 1.5 - Discharge Medications Discharge Medications: Aspirin [ASPIRIN 325 MG *] 325 mg PO DAILY 08/17/16 [History] Atorvastatin Calcium [LIPITOR Tab 20 mg *] 20 mg PO HS 08/17/16 [History] Bumetanide [Bumex] 1 mg PO DAILY 08/17/16 [History] Cefdinir 300 mg PO BID 08/17/16 [History] Clonazepam 2 mg PO HS 08/17/16 [History] Clopidogrel Bisulfate [PLAVIX TAB 75 MG *] 75 mg PO DAILY 08/17/16 [History] Duloxetine HCl [Cymbalta 20 mg] 60 mg PO DAILY 08/17/16 [History] Fentanyl 25 Mcg/Hr [DURAGESIC PATCH 25 mcg/hr *] 1 patch PATCH Q72H 08/17/16 [ History] Furosemide [LASIX TAB 20 MG *] 20 mg PO DAILY PRN 08/17/16 [History] Gabapentin [Neurontin tab 800 mg] 800 mg PO TID 08/17/16 [History] Glipizide [Glipizide XL 5 mg] 5 mg PO DAILY 08/17/16 [History] Hydrochlorothiazide [HYDROCHLOROTHIAZIDE 12.5 MG CAP *] 12.5 mg PO DAILY [History] Losartan Potassium 100 mg PO DAILY 08/17/16 [History] Metformin HCl 1,000 mg PO BID 08/17/16 [History] Montelukast Sodium 10 mg PO DAILY 08/17/16 [History] Nabumetone 500 mg PO Q12H 08/17/16 [History] Omeprazole [PRILOSEC 20 MG *] 40 mg PO DAILY 08/17/16 [History] Oxycodone HCl [Oxycontin] 20 mg PO Q4H PRN 08/17/16 [History] Potassium Chloride [Potassium Chloride ER] 20 meq PO DAILY 08/17/16 [History] Tizanidine HCl [Zanaflex 2 mg] 2 mg PO TID 08/17/16 [History] Tramadol HCl 50 mg PO Q6H PRN 08/17/16 [History] Trazodone HCl 100 mg PO HS 08/17/16 [History] Triamterene & Hydrochlorothiaz [Triamterene/Hydrochloroth 37.5-25 mg] 1 cap PO DAILY 08/17/16 [History] Warfarin Sodium [COUMADIN 5 MG *] 5 mg PO DAILY 08/17/16 [History] - Discharge Disposition Discharge Disposition: Home with home health and physical therapy
== END 2016-08-20 14:55 | disposition home health service (06) | DRG 313 ==
LOC: ER 04:53 → MED/SURG 08:15
PROVIDERS: ADMIT Internal Medicine; ATTEND Internal Medicine
PROC: 3E0234Z Introduction of Serum, Toxoid and Vaccine into Muscle, Percutaneous Approach (ICD-10-PCS; principal; 2016-08-17)
DX: R07.89 Other chest pain (principal); R41.82 Altered mental status, unspecified; W18.39XA Other fall on same level, initial encounter; E11.65 Type 2 diabetes mellitus with hyperglycemia; Z66 Do not resuscitate; R94.31 Abnormal electrocardiogram [ECG] [EKG]; S80.812A Abrasion, left lower leg, initial encounter; G81.94 Hemiplegia, unspecified affecting left nondominant side; Y92.091 Bathroom in other non-institutional residence as the place of occurrence of the external cause; R29.6 Repeated falls; I51.7 Cardiomegaly; R55 Syncope and collapse; R53.1 Weakness; E87.6 Hypokalemia; E83.42 Hypomagnesemia; D72.828 Other elevated white blood cell count; D64.89 Other specified anemias; R79.1 Abnormal coagulation profile; R26.89 Other abnormalities of gait and mobility; Z23 Encounter for immunization
CPT/HCPCS: 36415; 70450; 71010; 72125; 80048; 80053; 80061; 81001; 82550; 82553; 83735; 84132; 84484; 85025; 85378; 85610; 85730; 90471; 93005; 94760; 96365; 96367; 99218; 99284; A4222; G8978; G8979; G0378; J1815